=== PATIENT | male | born 2000 | race Hispanic/Latino ===

== ENCOUNTER 2024-08-04 17:47 | Emergency (ER) | payer OTHER ==
[~2024-08-04] VITALS: Ht 172.7 cm; Wt 94.8 kg
[2024-08-04 18:28] VITALS: RESP 22; TEMP 98
[2024-08-04] MEDS: SODIUM CHLORIDE 0.9% 1000ML 1,000 ML IV STA (18:39)
[2024-08-04 18:40] LABS: BASOPHILS # (AUTO) 0.1 (0.0-0.1); BASOPHILS % 0.4 % (0.0-1.0); EOSINOPHILS # (AUTO) 0.1 (0.0-0.4); EOSINOPHILS % 0.9 % (0.0-6.0); HEMATOCRIT 44.3 % (38.2-49.6); HEMOGLOBIN 15.4 g/dL (14.0-18.0); LYMPHOCYTES # (AUTO) 1.3 (1.0-3.2); LYMPHOCYTES % 10.4 % (18.0-39.1); MEAN CORPUSCULAR HEMOGLOBIN 31.6 pg (28-32); MEAN CORPUSCULAR HGB CONC 34.8 g/dL (31-35); MEAN CORPUSCULAR VOLUME 90.8 fL (81-99); MONOCYTES # (AUTO) 0.6 (0.2-0.8); NEUTROPHILS # (AUTO) 10.5 (2.1-6.9); NEUTROPHILS % 82.8 % (38.7-80.0); PLATELET COUNT 259 x10e3/uL (140-360); RED BLOOD COUNT 4.88 x10e6/uL (4.3-5.7); RED CELL DISTRIBUTION WIDTH 11.6 % (11.7-14.4); WHITE BLOOD COUNT 12.71 x10e3/uL (4.8-10.8)
[2024-08-04] MEDS: ONDANSETRON HCL INJ 2MG/ML 2ML 2 MG/ML VIAL IV PRN (18:40)
[2024-08-04] MEDS: KETOROLAC TROMETHAMINE 30 MG/ML VIAL IV ONE (18:40)
[2024-08-04 19:00] LABS: ALBUMIN 4.4 g/dL (3.5-5.0); ALBUMIN/GLOBULIN RATIO 1.5 (0.8-2.0); ANION GAP 10.2 mmol/L (8-16); BILIRUBIN,TOTAL 0.6 mg/dL (0.2-1.2); CALCIUM 9.7 mg/dL (8.4-10.2); CREATININE, SERUM 0.82 mg/dL (0.72-1.25); POTASSIUM 4.2 mmol/L (3.5-5.1); TOTAL PROTEIN 7.4 g/dL (6.5-8.1)
[2024-08-04] MEDS ORDERED: IOPAMIDOL 370 MG/ML 100 ML INFUS..BTL INJ ONE (19:08)
[2024-08-04 19:30] VITALS: PULSE 82
[2024-08-04] MEDS: FENTANYL CITRATE/PF 100MCG/2 ML INJ IV PRN (20:15)
[2024-08-04] MEDS ORDERED: FLOMAX0.4 MG PO (21:20)
[2024-08-04] MEDS ORDERED: ONDANSETRON ODT4 MG PO (21:20)
[2024-08-04] MEDS ORDERED: ULTRAM 50MG50 MG PO (21:20)
[2024-08-04 21:41] LABS: BILIRUBIN,URINE NEGATIVE (NEGATIVE); CLARITY,URINE SL CLOUDY (CLEAR); COLOR,URINE YELLOW (YELLOW); GLUCOSE, URINE NEGATIVE (NEGATIVE); KETONES,URINE TRACE (NEGATIVE); LEUKOCYTE ESTERASE ,URINE NEGATIVE (NEGATIVE); NITRITE,URINE NEGATIVE (NEGATIVE); PH,URINE 7.5 (5 - 7); PROTEIN,URINE DIPSTICK NEGATIVE (NEGATIVE); URINE UROBILINOGEN 1 mg/dL (0.2 - 1)
[2024-08-04 21:54] LABS: WBC,URINE (MAN) 0-5 /HPF (0-5)
[2024-08-04 21:55] LABS: BACTERIA,URINE MANY /HPF; EPITHELIAL CELLS,URINE FEW /LPF; RBC,URINE >50 /HPF (0-5)
[2024-08-04] MEDS ORDERED: CEFDINIR300 MG PO (22:33)
[2024-08-04 23:24] VITALS: BP 128/75; O2SAT 99
== END 2024-08-04 22:52 | disposition home or self-care (01) ==
LOC: ER 18:03
DX: R10.31 Right lower quadrant pain (principal); N39.0 Urinary tract infection, site not specified; N20.2 Calculus of kidney with calculus of ureter; N50.811 Right testicular pain; R73.9 Hyperglycemia, unspecified; K76.0 Fatty (change of) liver, not elsewhere classified; F41.9 Anxiety disorder, unspecified; F17.210 Nicotine dependence, cigarettes, uncomplicated
CPT/HCPCS: 36415; 74177; 76870; 80053; 81001; 85025; 93976; 99284; J1885; J2405; J3010; J7030; Q9967